=== PATIENT | male | born 1995 | race Caucasian/White ===

== ENCOUNTER 2016-09-18 17:36 | Emergency (ER) | payer SELFPAY ==
[~2016-09-18] VITALS: Ht 172.7 cm; Wt 92.9 kg
[2016-09-18 20:09] VITALS: BP 122/74
== END 2016-09-18 20:11 ==
LOC: ED 20:05
DX: M79.603 Pain in arm, unspecified (principal)
CPT/HCPCS: 29125; 99283

== ENCOUNTER 2017-07-20 15:01 | Emergency (ER) | payer SELFPAY ==
[~2017-07-20] VITALS: Ht 170.2 cm; Wt 99.9 kg
[2017-07-20 15:03] VITALS: BP 116/75
[2017-07-20] MEDS ORDERED: HYDROcodone/APAP 5/325 TABLET PO ONE (15:30)
[2017-07-20] MEDS ORDERED: HYDROcodone/APAP 5/325 TABLET ONE (15:48)
== END 2017-07-20 16:00 | disposition home or self-care (01) ==
LOC: ED 15:30
DX: K08.89 Other specified disorders of teeth and supporting structures (principal); K04.7 Periapical abscess without sinus; K02.9 Dental caries, unspecified; F17.200 Nicotine dependence, unspecified, uncomplicated
CPT/HCPCS: 99283